=== PATIENT | male | born 1955 | race Two or more races ===

== ENCOUNTER 2022-12-05 15:00 | Emergency (ER) | payer OTHER ==
[~2022-12-05] VITALS: Ht 170.2 cm; Wt 70.3 kg
--- NOTE | 2022-12-05 15:00 | NUR ---
BIBRA FOR S/P SEIZURE AT HOME. PATIENT NON-VERBAL AT THIS TIME, ON 15 LPM O2 VIA NRB, WILL CONTINUE TO MONITOR.
[2022-12-05] MEDS ORDERED: IV NS 0.9% 1,000 ML BAG IV ONE (15:30)
[2022-12-05] MEDS ORDERED: LEVETIRACETAM (500MG) 1,000 MG in IV NS 0.9% 100 ML IV SCH (15:30)
[2022-12-05 15:38] LABS: BASOPHILS # (AUTO) 0.2 K/uL (0.0-0.2); BASOPHILS % (AUTO) 4.1 % (0.0-2.0); EOSINOPHILS % (AUTO) 7.4 % (0.0-6.0); HEMATOCRIT 37 % (39-51); HEMOGLOBIN 12.4 g/dL (13.5-17.5); LYMPHOCYTES # (AUTO) 1.1 K/uL (0.8-4.8); LYMPHOCYTES % (AUTO) 24.8 % (20.0-44.0); MEAN CORPUSCULAR HGB CONC 33 g/dl (31.0-36.0); MEAN CORPUSCULAR VOLUME 85 fL (80-96); MONOCYTES # (AUTO) 0.6 K/uL (0.1-1.30); MONOCYTES % (AUTO) 12.1 % (2.0-12.0); NEUTROPHILS # (AUTO) 2.4 K/uL (1.8-8.9); NEUTROPHILS % (AUTO) 51.6 % (43.0-81.0); PLATELET COUNT (AUTO) 113 K/uL (150-450); RED BLOOD CELL COUNT(AUTO) 4.42 MIL/uL (4.5-6.0); WHITE BLOOD COUNT (AUTO) 4.6 K/uL (4.3-11.0)
[2022-12-05 15:56] LABS: ALANINE AMINOTRANSFERASE 21 U/L (12-78); ALBUMIN 3.3 g/dL (3.4-5.0); ALKALINE PHOSPHATASE 166 U/L (46-116); ASPARTATE AMINOTRANSFERASE 37 U/L (15-37); BILIRUBIN,DIRECT 0.6 mg/dL (0.0-0.2); BILIRUBIN,TOTAL 2.3 mg/dL (0.2-1.0); CALCIUM, SERUM 9.1 mg/dL (8.5-10.1); CARBON DIOXIDE 21 mmol/L (21-32); CHLORIDE 105 mmol/L (98-107); CREATININE 0.8 mg/dL (0.6-1.3); GLUCOSE 117 mg/dL (74-106); POTASSIUM 4.4 mmol/L (3.5-5.1); SODIUM SERUM 138 mmol/L (136-145); TOTAL PROTEIN, SERUM 7.8 g/dL (6.4-8.2); UREA NITROGEN, BLOOD 13 mg/dL (7-18)
--- NOTE | 2022-12-05 16:00 | NUR ---
BLOOD SAMPLES OBTAINED
--- NOTE | 2022-12-05 16:31 | NUR ---
keppra iv started at 1601 , end time 1631.
--- NOTE | 2022-12-05 17:55 | NUR ---
PATIENT TOLERATING WELL ON ROOM AIR.
--- NOTE | 2022-12-05 18:14 | NUR ---
SPOKE WITH WHO STATED SHE WOULD ARRIVE IN ABOUT 30 MINUTES TO BIGHT MAKER PATIENT
--- NOTE | 2022-12-05 18:15 | NUR ---
IV removed. Catheter intact and site benign. Pressure and 4x4 applied to site. No bleeding noted.Patient discharged to home in stable condition. Written and verbal after care instructions given. Patient verbalizes understanding of instruction.
[2022-12-05 19:05] VITALS: BP 132/76; TEMP 98.1; O2SAT 98
--- NOTE | 2022-12-05 19:05 | NUR ---
Patient discharged to home in stable condition. Written and verbal after care instructions given. Patient verbalizes understanding of instruction.
[2022-12-07] MEDS ORDERED: MORPHINE SULFATE INJ 4 MG/ML DISP.SYRIN ONE (10:13)
== END 2022-12-05 19:05 | disposition home or self-care (01) ==
LOC: ER 15:06
DX: R56.9 Unspecified convulsions (principal)
CPT/HCPCS: 99285; 96365; 71045; 93005; 85025; 80048; 80076; 36415; 84484; J7030 ×2; J1953; J2270